=== PATIENT | male | born 1985 | race Caucasian/White ===

== ENCOUNTER 2016-09-02 08:45 | Emergency (ER) | payer BC, OTHER ==
[2016-09-02] MEDS ORDERED: ZOFRAN ODT ONE (08:54)
[2016-09-02] MEDS ORDERED: ZOFRAN PO ONE (09:00)
[2016-09-02 09:21] LABS: Basophils % (Auto) 0.4 % (0.0-1.8); Eosinophils % (Auto) 2.3 % (0.0-4.3); Hematocrit 42.3 % (35.5-45.6); Hemoglobin 14.3 gm/dl (11.8-15.2); Mean Corpuscular HGB Conc 34 % (32-34); Mean Corpuscular Hemoglobin 31 pg (28-32); Mean Corpuscular Volume 92 fl (84-94); Platelet Count 234 K/mm3 (140-440); Red Blood Count 4.62 M/mm3 (3.65-5.03); Red Cell Distribution Width 13.5 % (13.2-15.2); White Blood Count 7.2 K/mm3 (4.5-11.0)
[2016-09-02 09:34] LABS: Alanine Aminotransferase 12 units/L (7-56); Albumin 4.5 g/dL (3.9-5); Albumin/Globulin Ratio 1.5 %; Alkaline Phosphatase 49 units/L (35-129); Anion Gap 20 mmol/L; Blood Urea Nitrogen 9 mg/dL (9-20); Calcium 9.8 mg/dL (8.4-10.2); Carbon Dioxide 25 mmol/L (22-30); Chloride 99.5 mmol/L (98-107); Glucose 111 mg/dL (75-100); Lipase 11 units/L (13-60); Potassium 3.7 mmol/L (3.6-5.0); Sodium 141 mmol/L (137-145); Total Protein 7.6 g/dL (6.3-8.2)
[2016-09-02] MEDS ORDERED: ZOFRAN ODT PO ONE (12:00)
[2016-09-02] MEDS ORDERED: MORPHINE IV ONE (13:07)
[2016-09-02] MEDS ORDERED: ZOFRAN IV ONE (13:07)
[2016-09-02] MEDS ORDERED: NACL 0.9% 1000 ML 1,000 ML IV ONE (13:07)
--- NOTE | 2016-09-02 13:13 | Emergency Department Report ---
HPI - General Chief Complaint: Abdominal Pain Time Seen by Provider: 09/02/16 12:25 - HPI HPI: The patient is 30-year-old male who presents for evaluation of abdominal pain. The patient reports left lower quadrant, left upper quadrant, left flank pain for the past one day, 10/10 in severity, sharp in quality, radiating from the left flank to the left abdomen, sharp in quality, constant since onset. He also reports associated nausea and multiple episodes of nonbilious, nonbloody emesis, and intermittent hematuria. The patient denies fever, chills, night sweats, diarrhea, blood in the stool, dark tarry stool, dysuria, genital discharge, inability to pass flatus. ED Past Medical Hx - Past Medical History Previous Medical History?: Yes Additional medical history: West Nile virus, neuropathy - Surgical History Past Surgical History?: No - Social History Smoking Status: Never Smoker Substance Use Type: None - Medications Home Medications: Home Medications Medication Instructions Recorded Confirmed Last Taken Type Duloxetine HCl [Cymbalta] 60 mg PO DAILY 09/22/15 09/22/15 09/22/15 History Gabapentin [Gralise] 300 mg PO DAILY 09/22/15 09/22/15 09/22/15 History HYDROcodone/APAP 7.5-325 [[place] 1 each PO Q8HR PRN #15 tablet 09/02/16 Unknown Rx 7.5-325 mg TAB] Ondansetron [Zofran TAB] 4 mg PO Q8HR PRN #15 tablet 09/02/16 Unknown Rx Tamsulosin [Flomax] 0.4 mg PO QDAY #7 cap 09/02/16 Unknown Rx ED Review of Systems ROS: Stated complaint: ABD PAIN Other details as noted in HPI Constitutional: denies: fever ENT: denies: throat or neck pain Respiratory: denies: cough, shortness of breath Cardiovascular: denies: chest pain Endocrine: denies unexplained weight loss or gain Gastrointestinal: dreports abdominal pain, nausea Genitourinary: denies: dysuria Musculoskeletal: denies: leg swelling Skin: denies: rash Neurological: denies: headache Hematological/Lymphatic: denies: easy bleeding or easy bruising Psych: denies sadness or hopelessness Physical Exam - Physical Exam Vital Signs: Vital Signs 09/02/16 08:47 Temperature 98.7 F Pulse Rate 93 H Respiratory 20 Rate Blood Pressure 150/94 O2 Sat by Pulse 100 Oximetry Physical Exam: General: well-nourished, well-developed, no acute distress Head: Normocephalic, atraumatic Eyes: normal sclera ENT: Mucous membranes are pale and dry Neck: trachea midline, neck supple, No neck stiffness, no cervical adenopathy Respiratory: Breath sounds equal bilaterally, no wheezing, rales, or rhonchi Cardio: S1 and S2 present, no murmurs, rubs, gallops, capillary refill is delayed Abdomen: Normoactive bowel sounds, soft abdomen, left upper quadrant and left lower quadrant tenderness to palpation present, no rigidity, no guarding or rebound tenderness Chest WALL/Back: left CVA tenderness with percussion and superficial palpation present Musc: No pitting edema Skin: No rash Neuro: no facial drooping, normal speech Psych: Normal affect ED Course Vital Signs 09/02/16 08:47 Temperature 98.7 F Pulse Rate 93 H Respiratory 20 Rate Blood Pressure 150/94 O2 Sat by Pulse 100 Oximetry ED Medical Decision Making - Lab Data Result diagrams: 09/02/16 09:03 09/02/16 09:03 - Medical Decision Making The patient was seen and examined by myself. The patient is placed on a surveillance monitor and continuous pulse ox. On initial evaluation, the patient was found to be in no distress. Evaluation orders are placed. IV access is established and the patient is given 1 L normal saline fluid bolus and Zofran for nausea, and IV analgesic for pain. Lab results revealed elevated urinalysis WBC, and otherwise labs were non-concerning including WBC, hemoglobin, hematocrit, electrolytes, renal function, LFTs, lipase. The patient was reevaluated and reported that their symptoms were markedly improved. The patient is stable for discharge with outpatient follow-up. The patient is given follow-up and return instructions. The patient expressed understanding and agreed with the plan. The patient is discharged in stable condition. Critical care attestation.: If time is entered above; I have spent that time in minutes in the direct care of this critically ill patient, excluding procedure time. ED Disposition Clinical Impression: Abdominal pain, acute, right upper quadrant, Acute right flank pain, Dehydration Nausea & vomiting Qualifiers: Vomiting type: unspecified Vomiting Intractability: non-intractable Qualified Code(s): R11.2 - Nausea with vomiting, unspecified Disposition: DC-01 TO HOME OR SELFCARE Is pt being admited?: No Does the pt Need Aspirin: No Condition: Stable Instructions: Gastroenteritis (ED), Acute Nausea and Vomiting (ED), Food Poisoning (ED), Acute Abdominal Pain (ED), Kidney Stones (ED), How to Strain Your Urine (ED) Prescriptions: HYDROcodone/APAP 7.5-325 [[place] 7.5-325 mg TAB] 1 each PO Q8HR PRN #15 tablet PRN Reason: Pain Ondansetron [Zofran TAB] 4 mg PO Q8HR PRN #15 tablet PRN Reason: Nausea Tamsulosin [Flomax] 0.4 mg PO QDAY #7 cap Referrals: PRIMARY CARE, [Primary Care Provider] - 3-5 Days LUCA MENDOZA MD [Staff Physician] - 3-5 Days Time of Disposition: 13:08
[2016-09-02 14:13] LABS: Bacteria,Urine 1+ /HPF (Negative); Bilirubin,Urine NEG (Negative); Blood,Urine LG (Negative); Ketones,Urine NEG (Negative); Leukocyte Esterase,Urine NEG (Negative); Mucus,Urine 2+ /HPF; Nitrite,Urine NEG (Negative); RBC,Urine > 182.0 /HPF (0.0-6.0); Urobilinogen,Urine < 2.0 mg/dL (<2.0)
[2016-09-02 15:46] VITALS: BP 127/76
== END 2016-09-02 15:30 | disposition home or self-care (01) ==
LOC: ED 08:45
DX: R10.84 Generalized abdominal pain (principal); E86.0 Dehydration; R11.2 Nausea with vomiting, unspecified
CPT/HCPCS: 36415; 80053; 81001; 82962; 83690; 85025; 96361; 96374; 96375; 99284; J2270; J2405; J7030; Q0162

== ENCOUNTER 2017-07-22 13:24 | Emergency (ER) | payer MEDICARE ==
[2017-07-22 14:00] VITALS: BP 113/70
[2017-07-22] MEDS ORDERED: ULTRAM PO ONE (14:54)
--- NOTE | 2017-07-22 14:59 | Emergency Department Report ---
ED Lower Extremity HPI - General Chief Complaint: Extremity Injury, Lower Stated Complaint: POSSIBLE BROKEN FOOT Time Seen by Provider: 07/22/17 14:42 Source: patient Mode of arrival: Ambulatory Limitations: Physical Limitation - History of Present Illness Initial Comments: This 31-year-old -[place] male paraplegic status post West Nile virus infection usually ambulatory with crutches slipped and fell down 6 steps heard a pop to right foot and ankle Pain swelling deformity to same there is no LOC now at 8/10 right foot ankle pain swelling and deformity. MD Complaint: ankle injury (1), foot injury Injury: Ankle: Right, Foot: Right Type of Injury: other (fall) Place: home Severity: moderate Severity scale (0 -10): 5 Improves With: nothing Worsens With: weight bearing, movement, palpation Context: fall Associated Symptoms: swelling, tingling, unable to bear weight. denies: numbness - Related Data Home Medications Medication Instructions Recorded Confirmed Last Taken Duloxetine HCl [Cymbalta] 60 mg PO DAILY 09/22/15 09/22/15 09/22/15 Gabapentin [Gralise] 300 mg PO DAILY 09/22/15 09/22/15 09/22/15 Previous Rx's Medication Instructions Recorded Last Taken Type HYDROcodone/APAP 7.5-325 [[place] 1 each PO Q8HR PRN #15 tablet 09/02/16 Unknown Rx 7.5-325 mg TAB] Ondansetron [Zofran TAB] 4 mg PO Q8HR PRN #15 tablet 09/02/16 Unknown Rx Tamsulosin [Flomax] 0.4 mg PO QDAY #7 cap 09/02/16 Unknown Rx Acetaminophen/Codeine [Tylenol 1 tab PO Q6H PRN #15 tab 07/22/17 Unknown Rx /Codeine # 3 tab] Allergies Allergy/AdvReac Type Severity Reaction Status Date / Time No Known Allergies Allergy Unverified 09/22/15 14:36 ED Review of Systems ROS: Stated complaint: POSSIBLE BROKEN FOOT Other details as noted in HPI Constitutional: denies: chills, fever Eyes: denies: eye pain, eye discharge, vision change ENT: denies: ear pain, throat pain Respiratory: denies: cough, shortness of breath, wheezing Cardiovascular: denies: chest pain, palpitations Endocrine: no symptoms reported Gastrointestinal: denies: abdominal pain, nausea, diarrhea Genitourinary: denies: urgency, dysuria Musculoskeletal: joint swelling, myalgia Skin: denies: rash, lesions Neurological: denies: headache, weakness, paresthesias Psychiatric: as per HPI Hematological/Lymphatic: denies: easy bleeding, easy bruising ED Past Medical Hx - Past Medical History Previous Medical History?: Yes Hx Hypertension: No Hx CVA: No Hx Heart Attack/AMI: No Hx Congestive Heart Failure: No Hx Diabetes: No Hx Deep Vein Thrombosis: No Hx Pulmonary Embolism: No Hx GERD: No Hx Liver Disease: No Hx Renal Disease: No Hx of Cancer: No Hx Sickle Cell Disease: No Hx Arthritis: No Hx Headaches / Migraines: No Hx Seizures: No Hx Kidney Stones: No Hx Psychiatric Treatment: No Hx Asthma: No Hx COPD: No Hx Tuberculosis: No Hx Dementia: No Hx HIV: No Additional medical history: West Nile virus, neuropathy - Surgical History Past Surgical History?: No Hx Coronary Stent: No Hx Open Heart Surgery: No Hx Pacemaker: No Hx Internal Defibrillator: No Hx Cholecystectomy: No Hx Appendectomy: No Hx Breast Surgery: No - Social History Smoking Status: Never Smoker Substance Use Type: None - Medications Home Medications: Home Medications Medication Instructions Recorded Confirmed Last Taken Type Duloxetine HCl [Cymbalta] 60 mg PO DAILY 09/22/15 09/22/15 09/22/15 History Gabapentin [Gralise] 300 mg PO DAILY 09/22/15 09/22/15 09/22/15 History HYDROcodone/APAP 7.5-325 [[place] 1 each PO Q8HR PRN #15 tablet 09/02/16 Unknown Rx 7.5-325 mg TAB] Ondansetron [Zofran TAB] 4 mg PO Q8HR PRN #15 tablet 09/02/16 Unknown Rx Tamsulosin [Flomax] 0.4 mg PO QDAY #7 cap 09/02/16 Unknown Rx Acetaminophen/Codeine [Tylenol 1 tab PO Q6H PRN #15 tab 07/22/17 Unknown Rx /Codeine # 3 tab] ED Physical Exam - General Limitations: Physical Limitation General appearance: alert, in no apparent distress - Head Head exam: Present: atraumatic, normocephalic - Eye Eye exam: Present: normal appearance - ENT ENT exam: Present: mucous membranes moist - Neck Neck exam: Present: normal inspection - Respiratory Respiratory exam: Present: normal lung sounds bilaterally. Absent: respiratory distress - Cardiovascular Cardiovascular Exam: Present: regular rate, normal rhythm. Absent: systolic murmur, diastolic murmur, rubs, gallop - GI/Abdominal GI/Abdominal exam: Present: soft, normal bowel sounds - Rectal Rectal exam: Present: deferred - Extremities Exam Extremities exam: Present: tenderness, normal capillary refill, joint swelling ( right lateral ankle and foot ). Absent: pedal edema, calf tenderness - Expanded Lower Extremity Exam Right Ankle exam: Present: tenderness, swelling, deformity. Absent: full ROM, abrasion, laceration, ecchymosis, crepidus, dislocation, erythema, anterior draw sign Foot/Toe exam: Present: tenderness, swelling, ecchymosis, tenderness at base of 5th metatarsal. Absent: abrasion, laceration, deformity, crepidus, dislocation , erythema, amputation, puncture wound, foreign body, calcaneal tenderness, nail avulsion, subungual hematoma Neuro vascular tendon exam: Present: no vascular compromise, motor deficit, significant pain with passive ROM of distal joint. Absent: pulse deficit, abnormal cap refill, sensory deficit, tendon deficit, extremity cold to touch, pallor, abnormal 2-point discrimination, decreased fine/light touch, foot drop, peroneal nerve deficit Gait: Positive: unable to bear weight - Back Exam Back exam: Present: normal inspection - Neurological Exam Neurological exam: Present: alert, oriented X3 - Expanded Neurological Exam Expanded Patient oriented to: Present: person, place, time Speech: Present: fluid speech Cranial nerves: EOM's Intact: Normal, Gag Reflex: Normal, Tongue Deviation: Normal, Nystagmus: Normal, Facial Sensation: Normal Cerebellar function: Finger to Nose: Normal, Heel to Reis: Abnormal Right, Romberg: Normal Upper motor neuron: Yrn Neglect: Normal, Pronator Drift: Normal, Babinski Sign : Normal, Sensory Extinction: Normal Sensory exam: Upper Extremity Light Touch: Normal, Upper Extremity Pin Prick: Normal, Upper Extremity Temperature: Normal, UE 2 Point Discrimination: Normal, Lower Extremity Light Touch: Normal, Lower Extremity Pin Prick: Normal, Lower Extremity Temperature: Normal, LE 2 Point Discrimination: Normal Motor strength exam: RUE: 5, LUE: 5, RLE: 2/1 (this chronic finding of 4 yrs ) , LLE: 5 DTR: knee (R): 1+, knee (L): 2+, ankle (R): 2+, ankle (L): 2+ Best Eye Response (Willi): (4) open spontaneously Best Motor Response (Willi): (6) obeys commands Best Verbal Response (Willi): (5) oriented [place] Total: 15 - Psychiatric Psychiatric exam: Present: normal affect, normal mood - Skin Skin exam: Present: warm, dry, intact, normal color. Absent: rash ED Course Vital Signs 07/22/17 07/22/17 13:55 15:01 Temperature 98.5 F Pulse Rate 115 H Respiratory 18 20 Rate Blood Pressure 113/70 Blood Pressure 113/70 [Right] O2 Sat by Pulse 98 Oximetry ED Lower Extremity MDM - Radiology Data Radiology results: report reviewed, image reviewed mildy displace 5th metatarsal fracture - Medical Decision Making X-ray results closed right fifth metatarsal base fracture minimally displaced. Current exam. 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 Pain currently controlled to 2/ 10 at this time J complete displays any is appropriately via 2 finger insertion. pedal Pulses equally palpable bilateral +2 Critical care attestation.: If time is entered above; I have spent that time in minutes in the direct care of this critically ill patient, excluding procedure time. ED Disposition Clinical Impression: Closed fracture of fifth metatarsal bone of right foot Qualifiers: Encounter type: initial encounter Fracture alignment: displaced Qualified Code( s): S92.351A - Displaced fracture of fifth metatarsal bone, right foot, initial encounter for closed fracture Disposition: DC-01 TO HOME OR SELFCARE Is pt being admited?: No Does the pt Need Aspirin: No Condition: Stable Instructions: Foot Fracture in Adults (ED) Prescriptions: Acetaminophen/Codeine [Tylenol /Codeine # 3 tab] 1 tab PO Q6H PRN #15 tab PRN Reason: Pain Referrals: PRIMARY MD REAL [Primary Care Provider] - 3-5 Days JANETT CARMEN MD [Staff Physician] - 3-5 Days Forms: Work/School Release Form(ED) Time of Disposition: 17:39
--- NOTE | 2017-07-22 15:29 | XRay Report ---
RIGHT FOOT, 3 views: History: Pain. There is a subtle mildly displaced fracture at the base of the fifth metatarsal. This is better demonstrated on the right ankle films performed the same day. There is mild overlying soft tissue swelling. The remaining bony structures and joint spaces are unremarkable. IMPRESSION: Fracture, fifth metatarsal base.
--- NOTE | 2017-07-22 15:30 | XRay Report ---
RIGHT ANKLE, 3 views: History: right ankle pain. Findings: Mild soft tissue swelling is identified. Mildly displaced fracture at the base of the fifth metatarsal is again noted. The distal tibia, fibula and talar dome are intact. Impression: Soft tissue swelling. Fifth metatarsal base fracture.
== END 2017-07-22 17:48 | disposition home or self-care (01) ==
LOC: ED 13:24
DX: S92.351A Displaced fracture of fifth metatarsal bone, right foot, initial encounter for closed fracture (principal); W10.9XXA Fall (on) (from) unspecified stairs and steps, initial encounter; Y93.89 Activity, other specified; Y92.89 Other specified places as the place of occurrence of the external cause; Y99.8 Other external cause status
CPT/HCPCS: 99283

== ENCOUNTER 2017-09-02 07:25 | Emergency (ER) | payer MEDICAID ==
[2017-09-02 07:43] VITALS: BP 131/80
[2017-09-02 09:09] LABS: Hematocrit 41.2 % (35.5-45.6); Hemoglobin 14.2 gm/dl (11.8-15.2); Mean Corpuscular HGB Conc 34 % (32-34); Mean Corpuscular Hemoglobin 32 pg (28-32); Mean Corpuscular Volume 92 fl (84-94); Platelet Count 249 K/mm3 (140-440); Red Blood Count 4.47 M/mm3 (3.65-5.03); Red Cell Distribution Width 14.1 % (13.2-15.2)
[2017-09-02 09:21] LABS: BUN/Creatinine Ratio 9; Blood Urea Nitrogen 9 mg/dL (9-20); Calcium 9.1 mg/dL (8.4-10.2); Hemolysis Index 27
--- NOTE | 2017-09-02 10:32 | Emergency Department Report ---
ED General Adult HPI - General Chief complaint: Pain General Stated complaint: PAIN COMPLICATION Time Seen by Provider: 09/02/17 10:15 Source: patient Mode of arrival: Ambulatory Limitations: No Limitations - History of Present Illness Initial comments: Patient is 31 years old male with history of West Nile virus in 2014 and since then he's been having flareup of neuropathy. Patient stated that he is having pain all over for the last 2-3 days in its typical for his neuropathy. He stated that he is out of his gabapentin and baclofen. Patient denied any nausea or vomiting. He denied any fever or diarrhea. - Related Data Home Medications Medication Instructions Recorded Confirmed Last Taken Duloxetine HCl [Cymbalta] 60 mg PO DAILY 09/22/15 09/22/15 09/22/15 Gabapentin [Gralise] 300 mg PO DAILY 09/22/15 09/22/15 09/22/15 Previous Rx's Medication Instructions Recorded Last Taken Type HYDROcodone/APAP 7.5-325 [[place] 1 each PO Q8HR PRN #15 tablet 09/02/16 Unknown Rx 7.5-325 mg TAB] Ondansetron [Zofran TAB] 4 mg PO Q8HR PRN #15 tablet 09/02/16 Unknown Rx Tamsulosin [Flomax] 0.4 mg PO QDAY #7 cap 09/02/16 Unknown Rx Acetaminophen/Codeine [Tylenol 1 tab PO Q6H PRN #15 tab 07/22/17 Unknown Rx /Codeine # 3 tab] Allergies Allergy/AdvReac Type Severity Reaction Status Date / Time No Known Allergies Allergy Unverified 09/22/15 14:36 ED Review of Systems ROS: Stated complaint: PAIN COMPLICATION Other details as noted in HPI Comment: All other systems reviewed and negative Constitutional: denies: chills, fever Respiratory: denies: cough, orthopnea, shortness of breath, SOB with exertion, wheezing Cardiovascular: denies: chest pain, palpitations Gastrointestinal: denies: abdominal pain, nausea, vomiting, diarrhea, constipation, hematemesis Musculoskeletal: back pain, arthralgia, myalgia. denies: joint swelling Neurological: denies: headache, weakness, numbness, paresthesias, confusion, abnormal gait, vertigo ED Past Medical Hx - Past Medical History Previous Medical History?: Yes Hx Hypertension: No Hx CVA: No Hx Heart Attack/AMI: No Hx Congestive Heart Failure: No Hx Diabetes: No Hx Deep Vein Thrombosis: No Hx Pulmonary Embolism: No Hx GERD: No Hx Liver Disease: No Hx Renal Disease: No Hx Sickle Cell Disease: No Hx Arthritis: No Hx Headaches / Migraines: No Hx Seizures: No Hx Kidney Stones: No Hx Psychiatric Treatment: No Hx Asthma: No Hx COPD: No Hx Tuberculosis: No Hx Dementia: No Hx HIV: No Additional medical history: West Nile virus, neuropathy - Surgical History Past Surgical History?: No Hx Coronary Stent: No Hx Open Heart Surgery: No Hx Pacemaker: No Hx Internal Defibrillator: No Hx Cholecystectomy: No Hx Appendectomy: No Hx Breast Surgery: No - Social History Smoking Status: Never Smoker Substance Use Type: Alcohol - Medications Home Medications: Home Medications Medication Instructions Recorded Confirmed Last Taken Type Duloxetine HCl [Cymbalta] 60 mg PO DAILY 09/22/15 09/22/15 09/22/15 History Gabapentin [Gralise] 300 mg PO DAILY 09/22/15 09/22/15 09/22/15 History HYDROcodone/APAP 7.5-325 [[place] 1 each PO Q8HR PRN #15 tablet 09/02/16 Unknown Rx 7.5-325 mg TAB] Ondansetron [Zofran TAB] 4 mg PO Q8HR PRN #15 tablet 09/02/16 Unknown Rx Tamsulosin [Flomax] 0.4 mg PO QDAY #7 cap 09/02/16 Unknown Rx Acetaminophen/Codeine [Tylenol 1 tab PO Q6H PRN #15 tab 07/22/17 Unknown Rx /Codeine # 3 tab] ED Physical Exam - General Limitations: No Limitations General appearance: alert, in no apparent distress - Head Head exam: Present: atraumatic, normocephalic, normal inspection - Eye Eye exam: Present: normal appearance - ENT ENT exam: Present: normal exam, normal orophraynx, mucous membranes moist - Neck Neck exam: Present: normal inspection, full ROM. Absent: tenderness, meningismus, lymphadenopathy, thyromegaly - Respiratory Respiratory exam: Present: normal lung sounds bilaterally. Absent: respiratory distress, wheezes, rales, rhonchi, stridor, chest wall tenderness, accessory muscle use, decreased breath sounds, prolonged expiratory - Cardiovascular Cardiovascular Exam: Present: regular rate, normal rhythm, normal heart sounds - GI/Abdominal GI/Abdominal exam: Present: soft, normal bowel sounds. Absent: distended, tenderness, guarding, rebound, rigid, organomegaly, mass, bruit, pulsatile mass , hernia - Extremities Exam Extremities exam: Present: normal inspection, full ROM, normal capillary refill. Absent: tenderness, pedal edema, joint swelling, calf tenderness - Back Exam Back exam: Present: normal inspection, full ROM. Absent: tenderness, CVA tenderness (R), CVA tenderness (L), muscle spasm, paraspinal tenderness, vertebral tenderness, rash noted - Neurological Exam Neurological exam: Present: alert, oriented X3, CN II-XII intact, normal gait, reflexes normal. Absent: motor sensory deficit - Skin Skin exam: Present: warm, intact, normal color ED Course Vital Signs 09/02/17 07:38 Temperature 97.9 F Pulse Rate 84 Respiratory 18 Rate Blood Pressure 131/80 O2 Sat by Pulse 99 Oximetry ED Medical Decision Making - Lab Data Result diagrams: 09/02/17 09:01 09/02/17 09:01 Critical care attestation.: If time is entered above; I have spent that time in minutes in the direct care of this critically ill patient, excluding procedure time. ED Disposition Clinical Impression: Generalized pain, West Nile virus (WNV) neuronopathy Disposition: - TO HOME OR SELFCARE Is pt being admited?: No Condition: Stable Instructions: West Nile Virus Infection (ED), Paresthesia (ED) Referrals: PRIMARY CARE, [Primary Care Provider] - 3-5 Days
== END 2017-09-02 10:49 | disposition home or self-care (01) ==
LOC: ED 07:25
DX: A92.30 West Nile virus infection, unspecified (principal); G62.9 Polyneuropathy, unspecified; R52 Pain, unspecified
CPT/HCPCS: 36415; 80048; 82550; 85027; 99283

== ENCOUNTER 2017-10-14 14:41 | Emergency (ER) | payer SELFPAY ==
[2017-10-14 14:55] VITALS: BP 115/76
[2017-10-14] MEDS ORDERED: TORADOL IM ONE (16:02)
--- NOTE | 2017-10-14 16:05 | Emergency Department Report ---
ED General Adult HPI - General Chief complaint: Extremity Injury, Lower Stated complaint: MEDICAL EVAL Time Seen by Provider: 10/14/17 15:49 Source: patient Mode of arrival: Ambulatory Limitations: No Limitations - History of Present Illness Initial comments: Patient is 31 years old male very familiar to me I saw him before for the same reason. Patient had history of West Nile virus and he had persistent right leg pain that flares up from time to time. Patient is taking Neurontin for this neuropathy and stating that it did help a lot. He stated that he is out of his Neurontin now. Patient denies any other symptoms. Specifically patient denied any fever, chest pain, abdomen pain, nausea or vomiting. - Related Data Home Medications Medication Instructions Recorded Confirmed Last Taken Duloxetine HCl [Cymbalta] 60 mg PO DAILY 09/22/15 09/22/15 09/22/15 Gabapentin [Gralise] 300 mg PO DAILY 09/22/15 09/22/15 09/22/15 Previous Rx's Medication Instructions Recorded Last Taken Type HYDROcodone/APAP 7.5-325 [Porter 1 each PO Q8HR PRN #15 tablet 09/02/16 Unknown Rx 7.5-325 mg TAB] Ondansetron [Zofran TAB] 4 mg PO Q8HR PRN #15 tablet 09/02/16 Unknown Rx Tamsulosin [Flomax] 0.4 mg PO QDAY #7 cap 09/02/16 Unknown Rx Acetaminophen/Codeine [Tylenol 1 tab PO Q6H PRN #15 tab 07/22/17 Unknown Rx /Codeine # 3 tab] Baclofen 20 mg PO TID #30 tablet 09/02/17 Unknown Rx Gabapentin [Neurontin] 300 mg PO BID #60 cap 09/02/17 Unknown Rx Ondansetron [Zofran Odt] 4 mg PO Q8HR PRN #14 tab.rapdis 09/02/17 Unknown Rx traMADol [Ultram] 50 mg PO Q6HR PRN #14 tablet 09/02/17 Unknown Rx Allergies Allergy/AdvReac Type Severity Reaction Status Date / Time No Known Allergies Allergy Unverified 09/22/15 14:36 ED Review of Systems ROS: Stated complaint: MEDICAL EVAL Other details as noted in HPI Comment: All other systems reviewed and negative Constitutional: denies: chills, fever Respiratory: denies: cough, shortness of breath, SOB with exertion Cardiovascular: denies: chest pain, palpitations Gastrointestinal: denies: abdominal pain, nausea, vomiting Musculoskeletal: arthralgia, myalgia. denies: joint swelling ED Past Medical Hx - Past Medical History Previous Medical History?: No Hx Hypertension: No Hx CVA: No Hx Heart Attack/AMI: No Hx Congestive Heart Failure: No Hx Diabetes: No Hx Deep Vein Thrombosis: No Hx Pulmonary Embolism: No Hx GERD: No Hx Liver Disease: No Hx Renal Disease: No Hx Sickle Cell Disease: No Hx Arthritis: No Hx Headaches / Migraines: No Hx Seizures: No Hx Kidney Stones: No Hx Psychiatric Treatment: No Hx Asthma: No Hx COPD: No Hx Tuberculosis: No Hx Dementia: No Hx HIV: No Additional medical history: West Nile virus, neuropathy - Surgical History Past Surgical History?: No Hx Coronary Stent: No Hx Open Heart Surgery: No Hx Pacemaker: No Hx Internal Defibrillator: No Hx Cholecystectomy: No Hx Appendectomy: No Hx Breast Surgery: No - Social History Smoking Status: Never Smoker Substance Use Type: None - Medications Home Medications: Home Medications Medication Instructions Recorded Confirmed Last Taken Type Duloxetine HCl [Cymbalta] 60 mg PO DAILY 09/22/15 09/22/15 09/22/15 History Gabapentin [Gralise] 300 mg PO DAILY 09/22/15 09/22/15 09/22/15 History HYDROcodone/APAP 7.5-325 [Porter 1 each PO Q8HR PRN #15 tablet 09/02/16 Unknown Rx 7.5-325 mg TAB] Ondansetron [Zofran TAB] 4 mg PO Q8HR PRN #15 tablet 09/02/16 Unknown Rx Tamsulosin [Flomax] 0.4 mg PO QDAY #7 cap 09/02/16 Unknown Rx Acetaminophen/Codeine [Tylenol 1 tab PO Q6H PRN #15 tab 07/22/17 Unknown Rx /Codeine # 3 tab] Baclofen 20 mg PO TID #30 tablet 09/02/17 Unknown Rx Gabapentin [Neurontin] 300 mg PO BID #60 cap 09/02/17 Unknown Rx Ondansetron [Zofran Odt] 4 mg PO Q8HR PRN #14 tab.rapdis 09/02/17 Unknown Rx traMADol [Ultram] 50 mg PO Q6HR PRN #14 tablet 09/02/17 Unknown Rx ED Physical Exam - General Limitations: No Limitations General appearance: alert, in no apparent distress - Head Head exam: Present: atraumatic, normocephalic, normal inspection - ENT ENT exam: Present: normal exam, normal orophraynx - Neck Neck exam: Present: normal inspection, full ROM. Absent: tenderness, meningismus - Respiratory Respiratory exam: Present: normal lung sounds bilaterally. Absent: respiratory distress, wheezes, rales, rhonchi, stridor, chest wall tenderness, accessory muscle use, decreased breath sounds, prolonged expiratory - Cardiovascular Cardiovascular Exam: Present: regular rate, normal rhythm, normal heart sounds - GI/Abdominal GI/Abdominal exam: Present: soft, normal bowel sounds. Absent: distended, tenderness, guarding, rebound, rigid, mass, bruit, pulsatile mass, hernia - Extremities Exam Extremities exam: Present: normal inspection, full ROM, normal capillary refill - Back Exam Back exam: Present: normal inspection, full ROM. Absent: CVA tenderness (R), CVA tenderness (L) - Neurological Exam Neurological exam: Present: alert, oriented X3, CN II-XII intact, normal gait, reflexes normal - Skin Skin exam: Present: warm, intact, normal color ED Course Vital Signs 10/14/17 14:53 Temperature 98.5 F Pulse Rate 98 H Respiratory 16 Rate Blood Pressure 115/76 O2 Sat by Pulse 98 Oximetry Critical care attestation.: If time is entered above; I have spent that time in minutes in the direct care of this critically ill patient, excluding procedure time. ED Disposition Clinical Impression: Peripheral neuropathy, Leg pain, bilateral Disposition: -01 TO HOME OR SELFCARE Is pt being admited?: No Condition: Stable Instructions: Arthralgia (ED), West Nile Virus Infection (ED) Referrals: PRIMARY CARE, [Primary Care Provider] - 3-5 Days
== END 2017-10-14 16:20 | disposition home or self-care (01) ==
LOC: ED 14:41
DX: G62.9 Polyneuropathy, unspecified (principal)
CPT/HCPCS: 96372; 99282; J1885